=== PATIENT | male | born 1955 | race African-American/Black ===

== ENCOUNTER 2016-11-09 09:36 | Day surgery (SDC) | payer OTHER ==
[~2016-11-09 09:36] MED LIST: KETOROLAC TROMETHAMINE 0.45% 4 DROP/0.4 ML DROPERETTE OD PRN
[2016-11-09] MEDS ORDERED: CHONDR SU A NA/HYALUR INTRAOC KIT (SURGICARE) ONE (09:41)
[2016-11-09] MEDS ORDERED: TOBRAMYCIN SULFATE/DEXAMETH OPH OINTMENT 3.5 GM ONE (09:41)
[2016-11-09] MEDS ORDERED: EPINEPHRINE INJ/PF 1 MG/1 ML AMPULE ONE (09:41)
[2016-11-09] MEDS ORDERED: LIDOCAINE 1% INJ-PF (10 MG/ML) 30 ML SDV ONE (09:41)
[2016-11-09] MEDS: TROPICAMIDE 1% OPH SOLN 3 ML OD PRN ×3 (10:29→11:00)
[2016-11-09] MEDS: CYCLOPENTOLATE 0.2%/PHENYLEPHRINE 1% OPH SOLN 2 ML OD PRN ×3 (10:29→11:00)
[2016-11-09] MEDS: BESIFLOXACIN HCL 0.6% OPH SUSP 5 ML BOTTLE OD PRN ×3 (10:30→11:27)
[2016-11-09] MEDS: LIDOCAINE 3.5% OPH GEL/PF 1 ML/TUBE OD PRN ×3 (10:31→11:08)
[2016-11-09] MEDS ORDERED: MIDAZOLAM 2 MG/2 ML INJ ONE (11:04)
[2016-11-09] MEDS ORDERED: FENTANYL CITRATE INJ/PF 100 MCG/2 ML AMPUL ONE (11:04)
== END 2016-11-09 12:05 | disposition home or self-care (01) ==
LOC: SC 09:36
PROVIDERS: ATTEND Ophthalmology
PROC: 089230Z Drainage of Right Anterior Chamber with Drainage Device, Percutaneous Approach (ICD-10-PCS; 2016-11-09)
PROC: 08RJ3JZ Replacement of Right Lens with Synthetic Substitute, Percutaneous Approach (ICD-10-PCS; principal; 2016-11-09 10:45)
DX: H25.11 Age-related nuclear cataract, right eye (principal); Z98.42 Cataract extraction status, left eye; H40.1112 Primary open-angle glaucoma, right eye, moderate stage; H40.1123 Primary open-angle glaucoma, left eye, severe stage; I10 Essential (primary) hypertension; E11.9 Type 2 diabetes mellitus without complications; Z79.899 Other long term (current) drug therapy
CPT/HCPCS: 0191T; 66984; 142; A9270 GY; C1783; J0171; J2250; J3010; J3490; V2630